=== PATIENT | male | born 1960 | race Two or more races ===

== ENCOUNTER 2017-08-09 11:58 | Outpatient (CLI) | END 2017-08-09 12:36 | disposition home or self-care (01) | LOC: AMBL 11:58 | PROVIDERS: ATTEND Internal Medicine Geriatric Medicine | DX: R60.0 Localized edema (principal); M79.662 Pain in left lower leg; M79.661 Pain in right lower leg; L03.116 Cellulitis of left lower limb; I49.1 Atrial premature depolarization; R94.31 Abnormal electrocardiogram [ECG] [EKG] ==

== ENCOUNTER 2018-09-18 15:40 | Outpatient (CLI) | END 2018-09-18 15:41 | disposition home or self-care (01) | LOC: RHC-LAB 15:40 → FCC-LAB 15:41 | PROVIDERS: ATTEND Nurse Practitioner Family | DX: E11.9 Type 2 diabetes mellitus without complications (principal); I10 Essential (primary) hypertension; R60.9 Edema, unspecified; E66.01 Morbid (severe) obesity due to excess calories | CPT/HCPCS: 36415; 80053; 80061; 82043; 83037; 84443; 85025 ==

== ENCOUNTER 2018-10-10 16:51 | Outpatient (CLI) | END 2018-10-10 17:23 | disposition short-term general hospital (02) | LOC: AMBL 16:51 | PROVIDERS: ATTEND Emergency Medicine | DX: R55 Syncope and collapse (principal); H93.13 Tinnitus, bilateral; H53.8 Other visual disturbances ==

== ENCOUNTER 2019-03-25 15:27 | Outpatient (CLI) ==
--- NOTE | 2019-03-25 16:31 | US ---
EXAM: Renal ultrasound. History: Hypertension. Technique: Multiple sonographic images through the kidneys were obtained. Color duplex Doppler was used to interrogate vascular flow. Findings: Bladder was not well distended. Prominent prostate. Mild circumferential bladder wall thi ckening. The right kidney measures 11.3 cm in long length demonstrating normal cortical echogenicity without e vidence for hydronephrosis, mass or shadowing calculus. The left kidney measures 11.7 cm in long length demonstrating normal cortical echogenicity without ev idence for hydronephrosis, mass or shadowing calculus. Impression: Sonographically normal kidneys
--- NOTE | 2019-03-25 16:33 | US ---
EXAM: Renal arterial Doppler History: Hypertension. Technique: Multiple sonographic images through the kidneys were obtained. Color duplex Doppler was used to interrogate vascular flow. Findings: Both kidneys measure normal in long length without evidence for hydronephrosis, mass or shadowing andreas culus. The right renal artery was not well seen due to obscuration by bowel gas. The proximal left renal ar karla was not well seen due to obscuration by bowel gas. Upper limits of normal peak systolic velocit y within the distal left renal artery measuring 1.8 meters per second. The right renal resistive index is 0.78 and the left renal resistive index is 0.66 Impression: Limited evaluation of the renal arteries due to obscuration by bowel gas. Consider kelli elation with CTA or MRA of the renal arteries
== END 2019-03-25 15:28 | disposition home or self-care (01) ==
LOC: RAD 15:27
PROVIDERS: ATTEND Family Medicine
DX: I10 Essential (primary) hypertension (principal)